=== PATIENT | female | born 1980 | race Caucasian/White ===

== ENCOUNTER 2025-02-11 13:41 | Emergency (ER) | payer BC ==
[~2025-02-11] VITALS: Ht 157.5 cm; Wt 172.6 kg
[2025-02-11] MEDS ORDERED: ALBUTEROL/IPRATROPIUM 3 ML NEB INH PRN (14:15)
[2025-02-11] MEDS ORDERED: ACETAMINOPHEN500 MG PO (14:17)
[2025-02-11] MEDS ORDERED: ATORVASTATIN CA40 MG PO (14:18)
[2025-02-11] MEDS ORDERED: DICYCLOMINE HCL20 MG PO (14:18)
[2025-02-11] MEDS ORDERED: FERROUS SULFAT325 M2 PO (14:19)
[2025-02-11] MEDS ORDERED: MAGNESIUM OXID400 M1 PO (14:20)
[2025-02-11] MEDS ORDERED: DOCUSATE SODIU100 MG PO (14:20)
[2025-02-11] MEDS ORDERED: METFORMIN HCL500 MG PO (14:20)
[2025-02-11] MEDS ORDERED: PROTONIX40 MG PO (14:21)
[2025-02-11] MEDS ORDERED: SUMATRIPTAN SU100 MG PO (14:22)
[2025-02-11 14:35] LABS: BASOPHILS 0.4 % (0.1-1.2); EOSINOPHILS 0.5 % (0.7-5.8); LYMPHOCYTES 9.0 % (19.3-51.7); MCH 23.3 PG (25.6-32.2); MCHC 29.0 g/dL (32.2-35.5); MCV 80.3 fL (79.4-94.8); MONOCYTES 8.2 % (4.7-12.5); NEUTROPHILS 80.6 % (34.0-71.1); RBC 3.61 M/uL (3.93-5.22)
[2025-02-11 15:03] LABS: ALT (SGPT) 24.0 U/L (14-59); AST (SGOT) 17.0 U/L (15-37); GLOMERULAR FILTRATION RATE,EST 78.0 mL/min (>60); PROTEIN, TOTAL 8.0 g/dL (6.4-8.2); UREA NITROGEN 17.0 mg/dL (7-18)
--- OUTSIDE RECORDS SUMMARY | 2025-02-11 15:17 | XMS ---
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 Current PHONE: Unknown JUDY ELLER Nurse Practitioner: Adult Health Current PHONE: [phone] SARAN BAHENA Psychiatry \T\ Neurology: Psychiatry Current PHONE: [phone] ANILA PINEDA Nurse Practitioner: Family Current PHONE: [phone] Fina has no Care Guidelines for this patient. EMartha [facility] COUNT (12 MO.) [facility] [place] TOTAL 3 NOTE: Visits indicate total known visits. ED/UCC VISIT TRACKING (12 MO.) 02/11/2025 13:41 [facility] [place] TYPE: Emergency COMPLAINT: - GENERALIZED WEAKNES 01/21/2025 14:46 [facility] TYPE: Emergency DIAGNOSES: - Hypokalemia - Other pulmonary embolism without acute cor pulmonale - Unspecified abdominal pain - Abdominal Pain 11/23/2024 18:08 [facility] TYPE: Emergency DIAGNOSES: - Anemia, unspecified - Other seborrheic keratosis - Skin Problem INPATIENT VISIT TRACKING (12 MO.) 01/21/2025 14:46 [facility] TYPE: Internal Medicine DIAGNOSES: - Calculus of gallbladder without cholecystitis without obstruction - Hypokalemia - Other pulmonary embolism without acute cor pulmonale - Unspecified abdominal pain 11/23/2024 18:08 [facility] TYPE: Internal Medicine DIAGNOSES: - Anemia, unspecified - Inflamed seborrheic keratosis - Other seborrheic keratosis - Stress incontinence (female) (male) [email or web address]
[2025-02-11 15:54] LABS: BLOOD/HGB, URINE SMALL (Negative); KETONE, URINE NEGATIVE (Negative)
[2025-02-11 15:55] LABS: LEUK ESTERASE, URINE POSITVE (negative); NITRITE, URINE NEGATIVE (negative)
[2025-02-11 15:56] LABS: BACTERIA, URINE 1+ /hpf (negative); CASTS, URINE NONE SEEN \\lpf; CRYSTALS, URINE NONE SEEN (0-1+); EPITHELIAL CELLS, URINE SQUAMOUS 1+ /lpf (0-1+)
[2025-02-11 15:57] LABS: REFLEX CULTURE, URINE Yes (No)
[2025-02-11] MEDS ORDERED: ACETAMINOPHEN 500 MG TAB PO ONE (16:30)
[2025-02-11] MEDS ORDERED: SODIUM CHLORIDE 0.9% 1,000 ML IV ONE (16:30)
[2025-02-11] MEDS ORDERED: LACTATED RINGER'S 1,000 ML IV ONE (22:00)
[2025-02-12 00:30] VITALS: BP 124/62
--- NOTE | 2025-02-13 21:18 | EKG ---
[facility] [address] [facility] [place] [address] Signed Normal sinus rhythm Minimal voltage criteria for LVH, may be normal variant ( R in aVL ) Borderline ECG Confirmed by Merrill Saeed DO ([id number]) on 02/13/2025 9:18:27 PM Electronically Signed By: MERRILL SAEED DO 02/13/25 2118 PATIENT NAME: PASCALE CONN Nasreen Electrocardiogram DATE OF : 82 PHYSICIAN: MERRILL SAEED DO REPORT #: [id number] REPORT IS CONFIDENTIAL AND NOT TO BE RELEASED WITHOUT AUTHORIZATION
== END 2025-02-12 00:30 | disposition short-term general hospital (02) ==
LOC: ED 13:41
PROVIDERS: Emergency Medicine
DX: N12 Tubulo-interstitial nephritis, not specified as acute or chronic (principal); N20.0 Calculus of kidney; D64.9 Anemia, unspecified; E66.01 Morbid (severe) obesity due to excess calories; I26.99 Other pulmonary embolism without acute cor pulmonale; Z91.013 Allergy to seafood; Z88.6 Allergy status to analgesic agent; Z88.8 Allergy status to other drugs, medicaments and biological substances; Z79.84 Long term (current) use of oral hypoglycemic drugs; Z79.899 Other long term (current) drug therapy
CPT/HCPCS: 36415; 51702; 71045; 74177; 80053; 81001; 83735; 84484; 84703; 85025; 85060; 87088; 93005; 93010; 96361; 96374; 96375; 99285-25; A4311; J0696; J1790; J7030; J7121; Q9967